=== PATIENT | male | born 1960 | race Caucasian/White ===

== ENCOUNTER 2018-01-07 20:17 | Emergency (ER) | payer OTHER ==
[2018-01-07] MEDS ORDERED: TETRACAINE HCL 0.5% 2ML OPTH ONE (22:29)
[2018-01-07] MEDS ORDERED: FLUORESCEIN SODIUM 0.6 MG/WRAP ONE (22:29)
[2018-01-07] MEDS ORDERED: DIPHENHYDRAMINE 25 MG TAB/CAP ONE (22:46)
--- NOTE | 2018-01-07 23:13 | EDPHYS ---
Physician Documentation [facility] Name: Navid Parr Age: 57 yrs Sex: Male : 1960 Arrival Date: 01/07/2018 Time: 20:21 Bed 5 Private MD: Pk Segovia V ED Physician Phuc Garay HPI: 01/07 23:06 This 57 yrs old Male presents to ER via Ambulatory with complaints of Redness gs of Eye. 23:06 The patient is experiencing redness, tearing. Onset: The symptoms/episode gs began/occurred today. Onset: The symptoms/episode began/occurred after was cutting grass. Duration: the symptoms are continuous. Aggravated by nothing. Alleviated by nothing. Associated signs and symptoms: Pertinent negatives: headache. Severity of symptoms: At their worst the symptoms were moderate in the emergency department the symptoms are unchanged. The patient has not experienced similar symptoms in the past. The patient has not recently seen a physician. Historical: - Allergies: 21:08 No Known Allergies; aj - Home Meds: 22:58 atorvastatin 10 mg oral tab 1 tab once daily [Active]; Avodart 0.5 mg oral cap 1 cap lp1 once daily [Active]; amlodipine 5 mg oral tab once daily [Active]; levothyroxine 112 mcg tab 1 tab once daily [Active]; Ventolin HFA 90 mcg/actuation Nebulizer HFAA 2 puffs every 4 hours [Active]; bupropion HCl 300 mg Oral Tb24 1 tab once daily [Active]; Vitamin D3 2,000 unit oral tab daily [Active]; montelukast 10 mg oral tab 1 tab once daily [Active]; aspirin 325 mg Oral TbEC 1 tab once daily [Active]; multivitamin Oral tab daily [Active]; tamsulosin 0.4 mg Oral cp24 1 cap nightly [Active]; lisinopril 40 mg oral tab once daily [Active]; ranitidine HCl 150 mg Oral cap 1 cap 2 times per day [Active]; Symbicort 160-4.5 mcg/actuation inhalation HFAA 2 puffs 2 times per day [Active]; - PMHx: 21:08 BPH; COPD; GERD; High Cholesterol; Hypertension; Hypothyroidism; aj - PSHx: 21:08 EGD; COLONOSCOPY; Tonsillectomy; Vasectomy; aj - Immunization history:: Adult Immunizations up to date. - Social history:: Smoking status: Patient/guardian denies using tobacco. - Ebola Screening: : No symptoms or risks identified at this time. ROS: 23:06 All other systems are negative. gs Exam: 23:06 Head/Face: Normocephalic, atraumatic. ENT: Nares patent. No nasal discharge, no gs septal abnormalities noted. Tympanic membranes are normal and external auditory canals are clear. Oropharynx with no redness, swelling, or masses, exudates, or evidence of obstruction, uvula midline. Mucous membranes moist. Neck: Trachea midline, no thyromegaly or masses palpated, and no cervical lymphadenopathy. Supple, full range of motion without nuchal rigidity, or vertebral point tenderness. No Meningismus. Cardiovascular: Regular rate and rhythm with a normal S1 and S2. No gallops, murmurs, or rubs. Normal PMI, no JVD. No pulse deficits. Respiratory: Lungs have equal breath sounds bilaterally, clear to auscultation and percussion. No rales, rhonchi or wheezes noted. No increased work of breathing, no retractions or nasal flaring. Abdomen/GI: Soft, non-tender, with normal bowel sounds. No distension or tympany. No guarding or rebound. No evidence of tenderness throughout. 23:06 Constitutional: The patient appears alert, awake. 23:06 Eyes: Pupils: no acute changes, Extraocular movements: no acute changes, Conjunctiva: chemosis, that is moderate, in right eye, injected, in the right eye, no fb or flour-uptake. Vital Signs: 21:08 BP 143 / 94; Pulse 65; Resp 19; Temp 97.7; Pulse Ox 97% on R/A; Weight 92.99 kg; Height aj 6 ft. 0 in. (182.88 cm); Pain 1/10; 22:40 BP 132 / 85; Pulse 52; Resp 18; Pulse Ox 98% on R/A; lp1 21:08 Body Mass Index 27.80 (92.99 kg, 182.88 cm) aj MDM: 22:26 Patient medically screened. gs 23:06 Differential diagnosis: Corneal abrasion of right eye. Foreign body in right eye. gs allergic reaction. Data reviewed: vital signs, nurses notes. Administered Medications: 22:45 Drug: Benadryl 25 mg Route: PO; lp1 23:31 Follow up: Response: No adverse reaction lp1 Disposition: 01/07/18 23:12 Discharged to Home. Impression: Acute atopic conjunctivitis, right eye. - Condition is Stable. - Discharge Instructions: Allergic Conjunctivitis, [id number]. - Medication Reconciliation Form, Thank You Letter, Antibiotic Education, Prescription Opioid Use form. - Follow up: Vitor Wilks MD; When: 2 - 3 days; Reason: Re-evaluation by your physician. Signatures: Sierra Delgado RN RN aj Dionne Delacruz RN RN lp1 Phuc Garay MD MD gs Corrections: (The following items were deleted from the chart) 23:31 23:12 01/07/2018 23:12 Discharged to Home. Impression: Acute atopic conjunctivitis, lp1 right eye. Condition is Stable. Forms are Medication Reconciliation Form, Thank You Letter, Antibiotic Education, Prescription Opioid Use. Follow up: Vitor Wilks; When: 2 - 3 days; Reason: Re-evaluation by your physician. gs
--- NOTE | 2018-01-07 23:13 | ER ---
Nurse's Notes [facility] Name: Navid Parr Age: 57 yrs Sex: Male : 1960 Arrival Date: 01/07/2018 Time: 20:21 Bed 5 Private MD: Pk Segovia V Diagnosis: Acute atopic conjunctivitis, right eye Presentation: 01/07 21:07 Presenting complaint: Patient states: Redness and swelling to right eye that started aj tonight at 1800 after mowing yard. Transition of care: patient was not received from another setting of care. Onset of symptoms was January 07, 2018. Care prior to arrival: None. 21:07 Method Of Arrival: Ambulatory aj 21:07 Acuity: SAUL 2 aj 22:43 Risk Assessment: Do you want to hurt yourself or someone else? Patient reports no lp1 desire to harm self or others. Initial Sepsis Screen: Does the patient meet any 2 criteria? No. Patient's initial sepsis screen is negative. Does the patient have a suspected source of infection? No. Patient's initial sepsis screen is negative. Triage Assessment: 21:08 General: Appears in no apparent distress. comfortable, Behavior is calm, cooperative, aj appropriate for age. EENT: Sclera/Cornea are reddened in outer aspect of conjuctiva of right eye, iris of right eye and inner aspect of conjuctiva of right eye Reports pain in right eye. Respiratory: Airway is patent Respiratory effort is even, unlabored, Respiratory pattern is regular, symmetrical. Derm: Skin is intact, is healthy with good turgor, Skin is pink, warm \T\ dry. normal. Historical: - Allergies: 21:08 No Known Allergies; aj - Home Meds: 22:58 atorvastatin 10 mg oral tab 1 tab once daily [Active]; Avodart 0.5 mg oral cap 1 cap lp1 once daily [Active]; amlodipine 5 mg oral tab once daily [Active]; levothyroxine 112 mcg tab 1 tab once daily [Active]; Ventolin HFA 90 mcg/actuation Nebulizer HFAA 2 puffs every 4 hours [Active]; bupropion HCl 300 mg Oral Tb24 1 tab once daily [Active]; Vitamin D3 2,000 unit oral tab daily [Active]; montelukast 10 mg oral tab 1 tab once daily [Active]; aspirin 325 mg Oral TbEC 1 tab once daily [Active]; multivitamin Oral tab daily [Active]; tamsulosin 0.4 mg Oral cp24 1 cap nightly [Active]; lisinopril 40 mg oral tab once daily [Active]; ranitidine HCl 150 mg Oral cap 1 cap 2 times per day [Active]; Symbicort 160-4.5 mcg/actuation inhalation HFAA 2 puffs 2 times per day [Active]; - PMHx: 21:08 BPH; COPD; GERD; High Cholesterol; Hypertension; Hypothyroidism; aj - PSHx: 21:08 EGD; COLONOSCOPY; Tonsillectomy; Vasectomy; aj - Immunization history:: Adult Immunizations up to date. - Social history:: Smoking status: Patient/guardian denies using tobacco. - Ebola Screening: : No symptoms or risks identified at this time. Screenin:43 Abuse screen: Denies threats or abuse. Denies injuries from another. Nutritional lp1 screening: No deficits noted. Tuberculosis screening: No symptoms or risk factors identified. Fall Risk None identified. Assessment: 22:40 General: Appears in no apparent distress. Behavior is calm, cooperative, appropriate lp1 for age. Pain: Complains of pain in right lower eyelid. Neuro: Level of Consciousness is awake, alert, obeys commands. Cardiovascular: Patient's skin is warm and dry. Respiratory: Respiratory effort is even, unlabored. GI: No signs and/or symptoms were reported involving the gastrointestinal system. : No signs and/or symptoms were reported regarding the genitourinary system. EENT: Sclera/Cornea are reddened in right eye. Derm: Skin is pink, warm \T\ dry. Musculoskeletal: Circulation, motion, and sensation intact. Vital Signs: 21:08 BP 143 / 94; Pulse 65; Resp 19; Temp 97.7; Pulse Ox 97% on R/A; Weight 92.99 kg; Height aj 6 ft. 0 in. (182.88 cm); Pain 1/10; 22:40 BP 132 / 85; Pulse 52; Resp 18; Pulse Ox 98% on R/A; lp1 21:08 Body Mass Index 27.80 (92.99 kg, 182.88 cm) ED Course: 20:21 Patient arrived in ED. es 20:21 Pk Segovia MD is Private Physician. es 21:07 Triage completed. aj 21:08 Arm band placed on right wrist. Patient placed in waiting room. aj 22:19 Phuc Garay MD is Attending Physician. gs 22:40 Dionne Delacruz RN is Primary Nurse. lp1 22:44 Patient has correct armband on for positive identification. lp1 23:11 Vitor Wilks MD is Referral Physician. gs 23:29 No provider procedures requiring assistance completed. Patient did not have IV access lp1 during this emergency room visit. Administered Medications: 22:45 Drug: Benadryl 25 mg Route: PO; lp1 23:31 Follow up: Response: No adverse reaction lp1 Outcome: 23:12 Discharge ordered by . 23:31 Discharged to home ambulatory, with significant other. lp1 23:31 Condition: good 23:31 Discharge instructions given to patient, Instructed on discharge instructions, follow up and referral plans. Demonstrated understanding of instructions, follow-up care. 23:31 Patient left the ED. lp1 Signatures: Sierra Delgado, RN RN Nikki Apodaca Dionne Delacruz, RN RN lp1 Phuc Garay MD MD
[2018-01-07 23:37] VITALS: TEMP 97.7
[2018-01-07 23:39] VITALS: BP 132/85; O2SAT 98
== END 2018-01-07 23:31 | disposition home or self-care (01) ==
LOC: ER 20:17
DX: H10.11 Acute atopic conjunctivitis, right eye (principal); J44.9 Chronic obstructive pulmonary disease, unspecified; K21.9 Gastro-esophageal reflux disease without esophagitis; E78.00 Pure hypercholesterolemia, unspecified; I10 Essential (primary) hypertension; E03.9 Hypothyroidism, unspecified
CPT/HCPCS: 99283

== ENCOUNTER 2021-06-10 08:06 | Emergency (ER) | payer OTHER ==
[2021-06-10 08:54] LABS: Absolute Lymphocytes (CBC) 2.6 K/uL (0.7-4.9); Basophils % 0.8 % (0-1.3); Hematocrit 43.6 % (39.6-49.0); Lymphocytes % 29.7 % (15.3-44.8); MPV 9.1 fL (7.6-11.3); RBC Red Blood Cell Count 4.84 M/uL (4.33-5.43)
--- NOTE | 2021-06-10 09:03 | RAD REPORT ---
EXAM DESCRIPTION: CT - Stone Protocol - 06/10/2021 8:47 am CLINICAL HISTORY: Flank pain. Hematuria;Flank pain COMPARISON: Abdomen Pelvis W Contrast dated 02/13/2016 TECHNIQUE: Axial images were obtained without oral or IV contrast. Lack of contrast limits solid org an and vascular assessment. The [id number] spans the entirety of the system partially obscuring uppermost abdomen and lung bases. Coronal reformatted images were obtained and reviewed. All CT scans are performed using dose optimization technique as appropriate and may include automated exposure control or mA/KV adjustment according to patient size. FINDINGS: The lower lung jalloh are clear. Imaged portions of the liver and spleen show no suspicious findings on non-contrast imaging. The panc reas and adrenal glands are normal. No pathologic lymphadenopathy in the abdomen or pelvis. 4-5 mm calculus is present mid right ureter without significant hydronephrosis. Additional bilateral caliceal stones are present in both kidneys. Multiple benign appearing cysts are present bilaterally, largest rigidity from the lateral right kidney measuring 16 centimeters. No bowel obstruction, free air, free fluid or abscess. Normal appendix noted.Prostate gland is mildly prominent and projects into the bladder base. No significant bony abnormality. IMPRESSION: 4-5 mm stone mid right ureter without significant hydronephrosis. Additional bilateral caliceal stones are present in both kidneys.
[2021-06-10] MEDS ORDERED: NA CHLORIDE 0.9% 500 ML ONE (09:05)
[2021-06-10 10:56] LABS: Albumin 3.8 g/dL (3.4-5.0); Potassium 4.3 mmol/L (3.5-5.1)
[2021-06-10 11:00] LABS: Bilirubin Direct 0.1 mg/dL (0-0.2); Bilirubin Total 0.4 mg/dL (0.2-1.0); Protein, Total 7.7 g/dL (6.4-8.2)
--- NOTE | 2021-06-10 11:04 | EDPHYS ---
Physician Documentation [facility] Name: Navid Parr Age: 61 yrs Sex: Male : 1960 Arrival Date: 06/10/2021 Time: 08:11 Bed 20 Private MD: Pk Segovia V ED Physician Chandra Aguilar HPI: 06/10 08:33 This 61 yrs old Male presents to ER via Ambulatory with complaints of Urinary jr8 Problem - blood. 08:33 The patient complains of pain in the right flank. The pain radiates to the abdomen. jr8 Onset: The symptoms/episode began/occurred gradually, 1 week(s) ago, and became worse and became persistent. Modifying factors: The symptoms are alleviated by nothing. the symptoms are aggravated by nothing. Associated signs and symptoms: Pertinent positives: hematuria. Severity of pain: At its worst the pain was mild in the emergency department the pain is unchanged. The patient has experienced a previous episode. The patient has not recently seen a physician. This is a 61-year-old male patient that presented to the emergency room with complaints of 1 week history of right flank and low back pain that now has progressed to the right side of his abdomen. Stated that this morning he started with hematuria. Pain is a 1 out of 10 currently. Patient stated that he has had a history of renal stones in the past as well with similar symptoms.. Historical: - PMHx: 08:15 BPH; COPD; GERD; High Cholesterol; Hypertension; Hypothyroidism; aa5 - Immunization history:: Client reports receiving the 2nd dose of the Covid vaccine. - Social history:: Smoking status: Patient denies any tobacco usage or history of. ROS: 08:33 Eyes: Negative for injury, pain, redness, and discharge, ENT: Negative for injury, jr8 pain, and discharge, Neck: Negative for injury, pain, and swelling, Cardiovascular: Negative for chest pain, palpitations, and edema, Respiratory: Negative for shortness of breath, cough, wheezing, and pleuritic chest pain, MS/Extremity: Negative for injury and deformity, Skin: Negative for injury, rash, and discoloration, Neuro: Negative for headache, weakness, numbness, tingling, and seizure. 08:33 Abdomen/GI: Positive for abdominal pain, Negative for nausea, vomiting, and diarrhea. 08:33 Back: Positive for flank pain, on the right. 08:33 : Positive for hematuria. Exam: 08:33 Constitutional: This is a well developed, well nourished patient who is awake, alert, jr8 and in no acute distress. Cardiovascular: Regular rate and rhythm with a normal S1 and S2. No gallops, murmurs, or rubs. Normal PMI, no JVD. No pulse deficits. Respiratory: Lungs have equal breath sounds bilaterally, clear to auscultation and percussion. No rales, rhonchi or wheezes noted. No increased work of breathing, no retractions or nasal flaring. Skin: Warm, dry with normal turgor. Normal color with no rashes, no lesions, and no evidence of cellulitis. MS/ Extremity: Pulses equal, no cyanosis. Neurovascular intact. Full, normal range of motion. Neuro: Awake and alert, GCS 15, oriented to person, place, time, and situation. Cranial nerves II-XII grossly intact. Motor strength 5/5 in all extremities. Sensory grossly intact. 08:33 Abdomen/GI: Inspection: abdomen appears normal, Bowel sounds: active, all quadrants, Palpation: soft, in all quadrants, mild abdominal tenderness, in the anterior aspect of right lateral abdomen, mass, is not appreciated, rebound tenderness, is not appreciated, voluntary guarding, is not appreciated, involuntary guarding, is not appreciated, no appreciated organomegaly, Indicators: McBurney's point is not tender, Neville's sign is negative, Rovsing's sign is negative, Liver: tenderness, is not appreciated. 08:33 Back: ROM is normal, normal spinal alignment noted, CVA tenderness, that is mild, is noted bilaterally, vertebral tenderness, is not appreciated. Vital Signs: 08:14 BP 119 / 86; Pulse 72; Resp 20 S; Temp 97.3(TE); Pulse Ox 99% on R/A; Weight 97.07 kg aa5 (R); Height 6 ft. 0 in. (182.88 cm) (R); 08:33 BP 127 / 85; Pulse 65; Resp 18; Temp 97.8; Pulse Ox 97% on R/A; sl2 09:30 BP 127 / 87; Pulse 62; Resp 18; Temp 97.8; Pulse Ox 97% on R/A; sl2 10:00 BP 124 / 90; Pulse 57; Resp 18; Temp 97.8; Pulse Ox 99% on R/A; sl2 11:00 BP 127 / 84; Pulse 58; Resp 18; Temp 97.9; Pulse Ox 98% on R/A; sl2 08:14 Body Mass Index 29.02 (97.07 kg, 182.88 cm) aa5 MDM: 08:18 Patient medically screened. [facility] 11:02 Data reviewed: vital signs, nurses notes, lab test result(s), radiologic studies, CT jr8 scan. Data interpreted: Pulse oximetry: on room air is 97 %. Interpretation: normal. Counseling: I had a detailed discussion with the patient and/or guardian regarding: the historical points, exam findings, and any diagnostic results supporting the discharge/admit diagnosis, lab results, radiology results, the need for outpatient follow up, a urologist, to return to the emergency department if symptoms worsen or persist or if there are any questions or concerns that arise at home. ED course: Patient with only minimal pain on a scale of 1-10 currently rating it a pain of 1. Patient was able to urinate. Dynamically stable and afebrile. Patient has a history of stage IV chronic renal insufficiency which is not different from what we are seeing on labs today. Patient has mild hydronephrosis with a 4 to 5 mm stone right mid ureter. Should be able to pass this on his own and will put him on medications to help. Explained to patient that if he were to run fever have uncontrolled pain or nausea vomiting or were to stop urinating to immediately come back for further evaluation. Otherwise he needs to follow-up with urology in the next several days. Patient good with the plan at this time.. 06/10 08:18 Order name: Basic Metabolic Panel; Complete Time: 11:02 06/10 08:18 Order name: CBC with Diff; Complete Time: 09:03 06/10 08:18 Order name: Hepatic Function; Complete Time: 11:02 06/10 08:18 Order name: Urine Microscopic Only 06/10 10:56 Order name: Urinalysis ch5 06/10 08:18 Order name: IV Saline Lock; Complete Time: 08:46 06/10 08:18 Order name: Labs collected and sent; Complete Time: 08:46 /25 08:33 Order name: CT Stone Protocol; Complete Time: 09:04 jr8 Administered Medications: 08:36 Drug: NS 0.9% 500 ml Route: IV; Rate: bolus; Site: right forearm; sl2 09:50 Follow up: Response: No adverse reaction; IV Status: Completed infusion; IV Intake: sl2 500ml Disposition: 06/11 08:49 Co-signature as Attending Physician, Chandra Aguilar MD I agree with the assessment and sp3 plan of care. Disposition Summary: 06/10/21 11:04 Discharge Ordered Location: Home jr8 Problem: new jr8 Symptoms: have improved jr8 Condition: Stable jr8 Diagnosis - Hydronephrosis with renal and ureteral calculous obstruction jr8 Followup: jr8 - With: Dennis Munoz MD - When: 2 - 3 days - Reason: Recheck today's complaints, Continuance of care, Re-evaluation by your physician Discharge Instructions: - Discharge Summary Sheet jr8 - Kidney Stones jr8 - Hydronephrosis jr8 Forms: - Medication Reconciliation Form jr8 - Thank You Letter jr8 - Antibiotic Education jr8 - Prescription Opioid Use jr8 Prescriptions: - tamsulosin 0.4 mg Oral capsule - take 1 capsule by ORAL route Every night . 1/2 hour following the same meal jr8 each day; 10 capsule; Refills: 0, Product Selection Permitted - Cipro 500 mg Oral Tablet - take 1 tablet by ORAL route once daily for 5 days; 5 tablet; Refills: 0, jr8 Product Selection Permitted - Zofran 4 mg Oral Tablet - take 1 tablet by ORAL route every 12 hours As needed; 20 tablet; Refills: 0, jr8 Product Selection Permitted Signatures: Dispatcher [employer] Elyse Helms RN RN aa5 Duane Young PA PA jr8 Chandra Aguilar MD MD sp3 Lor Yap RN RN sl2 Corrections: (The following items were deleted from the chart) 06/10 11:03 08:18 Urine Dipstick-Ancillary ordered. jr8 sl2
--- NOTE | 2021-06-10 11:04 | ER ---
Nurse's Notes [facility] Name: Navid Parr Age: 61 yrs Sex: Male : 1960 Arrival Date: 06/10/2021 Time: 08:11 Bed 20 Private MD: Pk Segovia V Diagnosis: Hydronephrosis with renal and ureteral calculous obstruction Presentation: 06/10 08:14 Chief complaint: Patient states: low back pain radiating to RLQ that began 1 week ago, aa5 pt reports hematuria this morning. Reports hx of kidney stones. Coronavirus screen: At this time, the client does not indicate any symptoms associated with coronavirus-19. Ebola Screen: No symptoms or risks identified at this time. Initial Sepsis Screen: Does the patient meet any 2 criteria? No. Patient's initial sepsis screen is negative. Does the patient have a suspected source of infection? No. Patient's initial sepsis screen is negative. Risk Assessment: Do you want to hurt yourself or someone else? Patient reports no desire to harm self or others. Onset of symptoms was May 2021. 08:14 Method Of Arrival: Ambulatory aa5 08:14 Acuity: SAUL 3 aa5 Historical: - PMHx: 08:15 BPH; COPD; GERD; High Cholesterol; Hypertension; Hypothyroidism; aa5 - Immunization history:: Client reports receiving the 2nd dose of the Covid vaccine. - Social history:: Smoking status: Patient denies any tobacco usage or history of. Screenin:25 Abuse screen: Denies threats or abuse. Nutritional screening: No deficits noted. sl2 Tuberculosis screening: No symptoms or risk factors identified. Fall Risk None identified. Assessment: 08:25 General: Appears in no apparent distress. well groomed, well developed, Behavior is sl2 calm, cooperative. 08:25 Pain: Complains of pain in anterior aspect of right lateral abdomen and abdomen and sl2 right flank Pain radiates to abdomen Pain currently is 1 out of 10 on a pain scale. Quality of pain is described as aching, Pain began 3 hours ago. Is continuous, Alleviated by nothing. Aggravated by increased activity. Neuro: No deficits noted. Cardiovascular: No deficits noted. Respiratory: No deficits noted. GI: Bowel sounds present X 4 quads. Abd is soft and non tender X 4 quads. Reports lower abdominal pain. : No deficits noted. EENT: No deficits noted. Derm: No deficits noted. Musculoskeletal: No deficits noted. 08:37 Reassessment: Patient transported to radiology dept for CAt Scan via wheelchair. sl2 08:55 Reassessment: CAT scan completed, patient has been returned to the unit. sl2 09:57 Reassessment: Patient AAO X 3, lying quietly in bed - shows no signs of distress or sl2 discomfort, verbalized mild pain 1 of 10, denies needing pain medication at this time. Vital signs stable. Family / daughter present at bedside. Will continue to monitor and re-assess, awaiting diagnostic results and disposition. Vital Signs: 08:14 BP 119 / 86; Pulse 72; Resp 20 S; Temp 97.3(TE); Pulse Ox 99% on R/A; Weight 97.07 kg aa5 (R); Height 6 ft. 0 in. (182.88 cm) (R); 08:33 BP 127 / 85; Pulse 65; Resp 18; Temp 97.8; Pulse Ox 97% on R/A; sl2 09:30 BP 127 / 87; Pulse 62; Resp 18; Temp 97.8; Pulse Ox 97% on R/A; sl2 10:00 BP 124 / 90; Pulse 57; Resp 18; Temp 97.8; Pulse Ox 99% on R/A; sl2 11:00 BP 127 / 84; Pulse 58; Resp 18; Temp 97.9; Pulse Ox 98% on R/A; sl2 08:14 Body Mass Index 29.02 (97.07 kg, 182.88 cm) aa5 ED Course: 08:11 Patient arrived in ED. am2 08:12 Pk Segovia MD is Private Physician. am2 08:14 Triage completed. aa5 08:14 Arm band placed on. aa5 08:17 [facility] jr8 08:18 Chandra Aguilar MD is Attending Physician. jr8 08:25 Patient has correct armband on for positive identification. Bed in low position. Door sl2 closed. Noise minimized. Visitors limited. Warm blanket given. 08:30 Inserted saline lock: 20 gauge in right forearm, using aseptic technique. sl2 08:42 Lor Yap RN is Primary Nurse. sl2 08:42 CT ordered. sl2 08:47 CT Stone Protocol In Process Unspecified. EDMS 11:04 Dennis Munoz MD is Referral Physician. jr8 11:06 Urinalysis Sent. sl2 Administered Medications: 08:36 Drug: NS 0.9% 500 ml Route: IV; Rate: bolus; Site: right forearm; sl2 09:50 Follow up: Response: No adverse reaction; IV Status: Completed infusion; IV Intake: sl2 500ml Intake: 09:50 IV: 500ml; Total: 500ml. 2 Outcome: 11:04 Discharge ordered by . jr8 11:18 Discharged to home ambulatory, with family. 5 11:18 Condition: stable 11:18 Discharge instructions given to patient, family, Instructed on discharge instructions, Prescriptions given X 3. 11:18 Patient left the ED. 5 Signatures: Dispatcher [employer] EDND Elyse Alegre, RN RN aa5 Duane Young PA PA jr8 Sierra Cantor am2 Stewart Parikh RN RN 5 Lor Yap RN RN 2
[2021-06-10 11:44] VITALS: BP 127/84; TEMP 97.9; O2SAT 98
[2021-06-10 12:01] LABS: Urine Bacteria <20 /HPF (NONE SEEN); Urine RBC LOADED /HPF (NONE SEEN)
== END 2021-06-10 11:18 | disposition home or self-care (01) ==
LOC: ER 08:06
DX: N13.2 Hydronephrosis with renal and ureteral calculous obstruction (principal); Z87.442 Personal history of urinary calculi; I10 Essential (primary) hypertension
CPT/HCPCS: 87088; 85025; 87086; 80048; 36415; 80076; 81015; 76377; 74176; 96360; 99284; J7040

== ENCOUNTER 2021-11-09 11:15 | Emergency (ER) | payer OTHER ==
[2021-11-09] MEDS ORDERED: ACETAMINOPHEN 500 MG TAB ONE (12:02)
[2021-11-09] MEDS ORDERED: CEFTRIAXONE 1000 MG/VIAL ONE (12:02)
[2021-11-09] MEDS ORDERED: METHYLPREDNISOLONE 125 MG INJ ONE (12:02)
[2021-11-09] MEDS ORDERED: AZITHROMYCIN 250 MG TAB ONE (12:02)
[2021-11-09] MEDS ORDERED: LEVALBUTEROL 1.25 MG/3 ML NEB ONE (12:03)
[2021-11-09] MEDS ORDERED: IPRATROPIUM BROM 0.5MG/2.5ML ONE (12:03)
[2021-11-09] MEDS ORDERED: NA CHLORIDE 0.9% 500 ML ONE (12:03)
[2021-11-09 12:36] LABS: Absolute Lymphocytes (CBC) 1.2 K/uL (0.7-4.9); Hematocrit 43.8 % (39.6-49.0); Lymphocytes % 14.7 % (15.3-44.8); MPV 9.9 fL (7.6-11.3); RBC Red Blood Cell Count 4.82 M/uL (4.33-5.43)
--- NOTE | 2021-11-09 12:45 | RAD REPORT ---
EXAM DESCRIPTION: RAD - Chest Single View - 11/09/2021 12:14 pm CLINICAL HISTORY: COUGH COMPARISON: Abdomen 1 View (KUB) dated 06/21/2021; Chest Single View dated 02/12/2016; CHEST PA AND LA T 2 VIEW dated 10/24/2014; CHEST PA AND LAT 2 VIEW dated 01/03/2014 FINDINGS: Lines: None. Lungs: No evidence of edema or pneumonia. Linear scarring in the left lung base laterally. Pleural: No significant pleural effusions or pneumothorax. Cardiac: The heart size is within normal limits. Bones: No acute fractures. Other: IMPRESSION: No acute cardiopulmonary disease.
[2021-11-09 12:57] LABS: Albumin 3.6 g/dL (3.4-5.0); Bilirubin Direct 0.1 mg/dL (0-0.2); Bilirubin Total 0.5 mg/dL (0.2-1.0); Potassium 3.6 mmol/L (3.5-5.1); Protein, Total 7.2 g/dL (6.4-8.2); Troponin High Sensitivity 10.3 pg/mL (<58.9)
--- NOTE | 2021-11-09 13:44 | EDPHYS ---
Physician Documentation [facility] Name: Navid Parr Age: 61 yrs Sex: Male : 1960 Arrival Date: 11/09/2021 Time: 11:19 Bed 8 Private MD: SHASHI Physician Rios Mcgregor HPI: 11/09 13:35 This 61 yrs old Male presents to ER via Ambulatory with complaints of Flu nadege Symptoms. 13:35 The patient has shortness of breath at rest, with light activity. Onset: The nadege symptoms/episode began/occurred 2 day(s) ago. Duration: The symptoms are continuous, and are steadily getting worse. The patient's shortness of breath is aggravated by coughing, light activity. The patient presents to the emergency department with wheezing, Current therapy: albuterol inhaler, that began without any particular precipitating event, the patient was reported to have chest congestion, productive cough, trouble breathing. Modifying factors: The symptoms are alleviated by cool environment. The patient or guardian reports airway noise, cough, that is intermittent, difficulty breathing, flu symptoms, low-grade fever. Modifying factors: The symptoms are alleviated by remaining still, the symptoms are aggravated by cold environment. Historical: - Allergies: 11:25 No Known Allergies; ab2 - PMHx: 11:25 BPH; COPD; GERD; High Cholesterol; Hypertension; Hypothyroidism; ab2 - PSHx: 11:25 Vasectomy; Tonsillectomy; ab2 - Immunization history:: Adult Immunizations up to date, Client reports receiving the 2nd dose of the Covid vaccine. - Social history:: Smoking status: Patient denies any tobacco usage or history of. - Family history:: not pertinent. ROS: 13:35 Constitutional: Negative for fever, chills, and weight loss, Eyes: Negative for injury, nadege pain, redness, and discharge, ENT: Negative for injury, pain, and discharge, Neck: Negative for injury, pain, and swelling, Cardiovascular: Negative for chest pain, palpitations, and edema, Respiratory: Negative for shortness of breath, cough, wheezing, and pleuritic chest pain, Abdomen/GI: Negative for abdominal pain, nausea, vomiting, diarrhea, and constipation, Back: Negative for injury and pain, : Negative for injury, bleeding, discharge, and swelling, MS/Extremity: Negative for injury and deformity, Skin: Negative for injury, rash, and discoloration, Neuro: Negative for headache, weakness, numbness, tingling, and seizure, Psych: Negative for depression, anxiety, suicide ideation, homicidal ideation, and hallucinations, Endocrine: Negative for neck swelling, polydipsia, polyuria, polyphagia, and marked weight changes, Hematologic/Lymphatic: Negative for swollen nodes, abnormal bleeding, and unusual bruising. 13:35 Respiratory: Positive for cough, "sounds productive", dyspnea on exertion, shortness of breath, at rest. wheezing, inspiratory, expiratory. Exam: 13:39 Constitutional: This is a well developed, well nourished patient who is awake, alert, nadege and in no acute distress. Head/Face: Normocephalic, atraumatic. Eyes: Pupils equal round and reactive to light, extra-ocular motions intact. Lids and lashes normal. Conjunctiva and sclera are non-icteric and not injected. Cornea within normal limits. Periorbital areas with no swelling, redness, or edema. ENT: Nares patent. No nasal discharge, no septal abnormalities noted. Tympanic membranes are normal and external auditory canals are clear. Oropharynx with no redness, swelling, or masses, exudates, or evidence of obstruction, uvula midline. Mucous membranes moist. Neck: Trachea midline, no thyromegaly or masses palpated, and no cervical lymphadenopathy. Supple, full range of motion without nuchal rigidity, or vertebral point tenderness. No Meningismus. Chest/axilla: Normal chest wall appearance and motion. Nontender with no deformity. No lesions are appreciated. Cardiovascular: Regular rate and rhythm with a normal S1 and S2. No gallops, murmurs, or rubs. Normal PMI, no JVD. No pulse deficits. Abdomen/GI: Soft, non-tender, with normal bowel sounds. No distension or tympany. No guarding or rebound. No evidence of tenderness throughout. Back: No spinal tenderness. No costovertebral tenderness. Full range of motion. Male : Normal genitalia with no discharge or lesions. Skin: Warm, dry with normal turgor. Normal color with no rashes, no lesions, and no evidence of cellulitis. MS/ Extremity: Pulses equal, no cyanosis. Neurovascular intact. Full, normal range of motion. Neuro: Awake and alert, GCS 15, oriented to person, place, time, and situation. Cranial nerves II-XII grossly intact. Motor strength 5/5 in all extremities. Sensory grossly intact. Cerebellar exam normal. Normal gait. Psych: Awake, alert, with orientation to person, place and time. Behavior, mood, and affect are within normal limits. 13:39 ECG was reviewed by the Attending Physician. 13:39 Respiratory: the patient does not display signs of respiratory distress, Respirations: labored breathing, that is mild, Breath sounds: bronchial sounds, that are mild, decreased breath sounds, that are mild, rhonchi, that are moderate, stridor, that is mild, + upper airway congestion. wheezing: expiratory is scattered. Vital Signs: 11:26 BP 113 / 71; Pulse 124; Resp 20; Temp 99.7(O); Pulse Ox 93% on R/A; Weight 94.35 kg; ab2 Height 6 ft. (182.88 cm); Pain 1/10; 12:30 BP 112 / 64; Pulse 91; Resp 20; Pulse Ox 92% on R/A; ph 13:40 BP 103 / 60; Pulse 87; Resp 18; Pulse Ox 97% on R/A; ph 14:21 BP 114 / 62; Pulse 79; Resp 20; Temp 98.0; Pulse Ox 97% on R/A; ph 11:26 Body Mass Index 28.21 (94.35 kg, 182.88 cm) ab2 MDM: 11:33 Patient medically screened. nadege 13:41 Differential diagnosis: asthma, Bronchitis CHF exacerbation, Chronic Obstructive nadege Pulmonary Disease bronchitis, URI, reactive airway, URI, Myocardial Infarction pneumonia, Pneumothorax pulmonary edema, reactive airway disease, Sepsis Unstable Angina. Antibiotic administration: The patient is discharged and will get outpatient antibiotics, Zithromax. The patient's Wells Deep Vein Thrombosis Score was calculated as follows: Total Score: 0-2 Pts- Low Risk. The patient's pulmonary embolism risk score was calculated as follows: Total Score: 0-2 points. This patient was found to be at low risk for a pulmonary embolism by using the Well's assessment criteria. Immunization status: Influenza vaccine: Data reviewed: vital signs, nurses notes, lab test result(s), EKG, radiologic studies, CT scan, plain films. Data interpreted: rotor coil taper: rate is 87 beats/min, rhythm is regular, Pulse oximetry: on room air is 97 %. Test interpretation: by ED physician or midlevel provider: plain radiologic studies. Counseling: I had a detailed discussion with the patient and/or guardian regarding: the historical points, exam findings, and any diagnostic results supporting the discharge/admit diagnosis, lab results, radiology results, the need for outpatient follow up, the need for further work-up and treatment in the hospital. 11/09 11:39 Order name: Basic Metabolic Panel; Complete Time: 13: [facility] 11/09 11:39 Order name: CBC with Diff; Complete Time: 13: [facility] 11/09 11:39 Order name: LFT's; Complete Time: 13: [facility] 11/09 11:39 Order name: Magnesium; Complete Time: 13: [facility] 11/09 11:39 Order name: NT PRO-BNP; Complete Time: 13: [facility] 11/09 11:39 Order name: Troponin HS; Complete Time: 13: [facility] 11/09 11:39 Order name: XRAY Chest (1 view); Complete Time: 13: [facility] 11/09 11:39 Order name: COVID-19/FLU A+B (Document "Date of Onset" if Symptomatic) [facility] 11/09 11:39 Order name: Blood Culture Adult (2) nadege 11/09 11:39 Order name: Lactate; Complete Time: 13:05 [facility] 11/09 11:39 Order name: EKG; Complete Time: 11:40 11/09 11:39 Order name: Cardiac monitoring; Complete Time: 12:33 11/09 11:39 Order name: EKG - Nurse/Tech; Complete Time: 12:38 11/09 11:39 Order name: IV Saline Lock; Complete Time: 12:33 11/09 11:39 Order name: Labs collected and sent; Complete Time: 12:33 [facility] 11/09 11:39 Order name: O2 Per Protocol; Complete Time: 12:33 [facility] 11/09 11:39 Order name: O2 Sat Monitoring; Complete Time: 12:33 [facility] EC:39 Rate is 86 beats/min. Rhythm is regular. QRS [place] is Normal. [place] interval is normal. QRS nadege interval is normal. QT interval is normal. No Q waves. T waves are Normal. No ST changes noted. Clinical impression: NSR w/ Non-specific ST/T Changes and No evidence of ischemia. Interpreted by me. Reviewed by me. Administered Medications: 12:38 Drug: Rocephin (cefTRIAXone) 1 grams Route: IV; Rate: per protocol; Site: right forearm;ph 13:15 Follow up: Response: No adverse reaction; IV Status: Completed infusion ph 12:38 Drug: Zithromax (azithromycin) 500 mg Route: PO; ph 14:23 Follow up: Response: No adverse reaction ph 12:38 Drug: SOLU-Medrol (methylPrednisoLONE) 125 mg Route: IVP; Site: right forearm; ph 14:23 Follow up: Response: No adverse reaction ph 12:38 Drug: Xopenex (levalbuterol) 1.25 mg Route: Inhalation; ph 14:23 Follow up: Response: No adverse reaction ph 12:38 Drug: AtroVENT (ipratropium) Aerosol 0.5 mg Route: Inhalation; ph 14:22 Follow up: Response: No adverse reaction ph 12:39 Drug: NS 0.9% 500 ml Route: IV; Rate: bolus; Site: right forearm; ph 13:30 Follow up: Response: No adverse reaction; IV Status: Completed infusion; IV Intake: ph 500ml 12:39 Drug: Tylenol 1000 mg Route: PO; ph 14:23 Follow up: Response: No adverse reaction; Temperature is decreased ph 14:13 Drug: predniSONE 40 mg Route: PO; jh6 14:22 Follow up: Response: No adverse reaction ph Disposition Summary: 11/09/21 13:44 Discharge Ordered Location: Home nadege Problem: new nadege Symptoms: have improved nadege Condition: Stable nadege Diagnosis - Bronchitis, not specified as acute or chronic nadege - Influenza due to identified novel influenza A virus nadege - Fever, unspecified nadege Followup: nadege - With: Private Physician - When: 2 - 3 days - Reason: Recheck today's complaints, Continuance of care, Re-evaluation by your physician Discharge Instructions: - Discharge Summary Sheet nadege - Acute Bronchitis, Adult nadege - Fever, Adult nadege - Influenza, Adult nadege - Upper Respiratory Infection, Adult nadege - Acute Bronchitis, Adult, [id number]-[id number] nadege - Upper Respiratory Infection, Adult, Vquq-va-Coga nadege - Influenza, Adult, [id number] nadege Forms: - Medication Reconciliation Form nadege - Thank You Letter nadege - Antibiotic Education nadege - Prescription Opioid Use nadege Prescriptions: - Xofluza 40 mg Oral tablet - take 2 tablet by ORAL route one time; 2 tablet; Refills: 0, Product Selection [facility] Permitted - Zithromax 500 mg Oral Tablet - take 1 tablet by ORAL route once daily for 5 days; 5 tablet; Refills: 0, [facility] Product Selection Permitted Signatures: Dispatcher [employer] Rios Merritt MD MD cha Hall, Patricia, RN RN ph Alia Noyola RN RN jh6 Demar Treviño
--- NOTE | 2021-11-09 13:44 | ER ---
Nurse's Notes [facility] Name: Navid Parr Age: 61 yrs Sex: Male : 1960 Arrival Date: 11/09/2021 Time: 11:19 Bed 8 Private MD: Diagnosis: Bronchitis, not specified as acute or chronic;Influenza due to identified novel influenza A virus;Fever, unspecified Presentation: 11/09 11:26 Chief complaint: Patient states: "I have a fever, I'm weak, congested and SOB." jay states he hasn't been eating and all of their grandkids got diagnosed with Flu A and they baby sit them. Coronavirus screen: Vaccine status: Patient reports receiving the 2nd dose of the covid vaccine. Ebola Screen: Patient negative for fever greater than or equal to 101.5 degrees Fahrenheit, and additional compatible Ebola Virus Disease symptoms Patient denies exposure to infectious person. Patient denies travel to an Ebola-affected area in the 21 days before illness onset. No symptoms or risks identified at this time. Initial Sepsis Screen: Does the patient meet any 2 criteria? HR > 90 bpm. Does the patient have a suspected source of infection? No. Patient's initial sepsis screen is negative. Risk Assessment: Do you want to hurt yourself or someone else? Patient reports no desire to harm self or others. Onset of symptoms is unknown. 11:26 Method Of Arrival: Ambulatory ab2 11:26 Acuity: SAUL 3 ab2 Triage Assessment: 11:28 General: Appears in no apparent distress. uncomfortable, Behavior is calm, cooperative, ab2 appropriate for age. Pain: Complains of pain in head Pain currently is 1 out of 10 on a pain scale. Cardiovascular: Denies chest pain. Respiratory: Reports shortness of breath Airway is patent Respiratory effort is even, unlabored, Respiratory pattern is regular, symmetrical. Derm: Skin temperature is warm. Musculoskeletal: Reports weakness in whole body. Historical: - Allergies: 11:25 No Known Allergies; ab2 - PMHx: 11:25 BPH; COPD; GERD; High Cholesterol; Hypertension; Hypothyroidism; ab2 - PSHx: 11:25 Vasectomy; Tonsillectomy; ab2 - Immunization history:: Adult Immunizations up to date, Client reports receiving the 2nd dose of the Covid vaccine. - Social history:: Smoking status: Patient denies any tobacco usage or history of. - Family history:: not pertinent. Screenin:39 Abuse screen: Denies threats or abuse. Denies injuries from another. Nutritional ph screening: No deficits noted. Tuberculosis screening: No symptoms or risk factors identified. Fall Risk None identified. Assessment: 12:30 General: Appears in no apparent distress. comfortable, Behavior is calm, cooperative, ph appropriate for age, Reports fever for 12-24 hours. Pain: Denies pain. Neuro: Level of Consciousness is awake, alert, obeys commands, Oriented to person, place, time, situation. Cardiovascular: Denies chest pain, Capillary refill < 3 seconds in bilateral fingers Patient's skin is warm and dry. Respiratory: Reports shortness of breath at rest Airway is patent Respiratory effort is even, unlabored, Respiratory pattern is regular, symmetrical. GI: No signs and/or symptoms were reported involving the gastrointestinal system. Patient currently denies diarrhea, nausea, vomiting. Derm: Skin is intact, is healthy with good turgor, Skin is pink, warm \\T\\ dry. 13:30 Reassessment: Patient appears in no apparent distress at this time. Patient and/or ph family updated on plan of care and expected duration. Pain level reassessed. Patient is alert, oriented x 3, equal unlabored respirations, skin warm/dry/pink. awaiting test results, at bedside, VSS. Vital Signs: 11:26 BP 113 / 71; Pulse 124; Resp 20; Temp 99.7(O); Pulse Ox 93% on R/A; Weight 94.35 kg; ab2 Height 6 ft. (182.88 cm); Pain 1/10; 12:30 BP 112 / 64; Pulse 91; Resp 20; Pulse Ox 92% on R/A; ph 13:40 BP 103 / 60; Pulse 87; Resp 18; Pulse Ox 97% on R/A; ph 14:21 BP 114 / 62; Pulse 79; Resp 20; Temp 98.0; Pulse Ox 97% on R/A; ph 11:26 Body Mass Index 28.21 (94.35 kg, 182.88 cm) ab2 ED Course: 11:19 Patient arrived in ED. rg4 11:28 Triage completed. ab2 11:29 Arm band placed on left wrist. ab2 11:33 Rios Mcgregor MD is Attending Physician. nadege 12:16 XRAY Chest (1 view) In Process Unspecified. EDMS 12:18 Jewell Vines, RN is Primary Nurse. ph 12:25 Initial lab(s) drawn, by me, sent to lab. First set of blood cultures drawn Second set mh5 of blood cultures drawn by me. Inserted saline lock: 20 gauge in right forearm, using aseptic technique. Blood collected. 12:33 Basic Metabolic Panel Sent. mh5 12:33 CBC with Diff Sent. 5 12:33 LFT's Sent. 5 12:33 Magnesium Sent. 5 12:33 NT PRO-BNP Sent. 5 12:33 Troponin HS Sent. 5 12:35 Patient has correct armband on for positive identification. Bed in low position. Call [facility] light in reach. Side rails up X2. Adult w/ patient. Warm blanket given. bracelet and brooch maker on. Pulse ox on. NIBP on. 12:38 EKG done, COVID swab sent to lab. Flu and/or RSV swab sent to lab. 5 14:22 No provider procedures requiring assistance completed. IV discontinued, intact, ph bleeding controlled, No redness/swelling at site. Pressure dressing applied. Administered Medications: 12:38 Drug: Rocephin (cefTRIAXone) 1 grams Route: IV; Rate: per protocol; Site: right forearm;ph 13:15 Follow up: Response: No adverse reaction; IV Status: Completed infusion ph 12:38 Drug: Zithromax (azithromycin) 500 mg Route: PO; ph 14:23 Follow up: Response: No adverse reaction ph 12:38 Drug: SOLU-Medrol (methylPrednisoLONE) 125 mg Route: IVP; Site: right forearm; ph 14:23 Follow up: Response: No adverse reaction ph 12:38 Drug: Xopenex (levalbuterol) 1.25 mg Route: Inhalation; ph 14:23 Follow up: Response: No adverse reaction ph 12:38 Drug: AtroVENT (ipratropium) Aerosol 0.5 mg Route: Inhalation; ph 14:22 Follow up: Response: No adverse reaction ph 12:39 Drug: NS 0.9% 500 ml Route: IV; Rate: bolus; Site: right forearm; ph 13:30 Follow up: Response: No adverse reaction; IV Status: Completed infusion; IV Intake: ph 500ml 12:39 Drug: Tylenol 1000 mg Route: PO; ph 14:23 Follow up: Response: No adverse reaction; Temperature is decreased ph 14:13 Drug: predniSONE 40 mg Route: PO; 6 14:22 Follow up: Response: No adverse reaction ph Intake: 13:30 IV: 500ml; Total: 500ml. ph Outcome: 13:44 Discharge ordered by MD. light 14:22 Discharged to home ambulatory, with significant other. ph 14:22 Condition: good 14:22 Discharge instructions given to patient, significant other, Instructed on discharge instructions, follow up and referral plans. medication usage, Demonstrated understanding of instructions, follow-up care, medications, Prescriptions given X 4. 14:24 Patient left the ED. ph Signatures: Dispatcher [employer] EDMS Rios Mcgregor MD MD cha Hall, Patricia, RN RN onel Mohr, Teodora Us Alia Whitley RN RN jh6 Demar Treviño
[2021-11-09 13:59] LABS: SARS-COV-2 RT PCR NEGATIVE (NEGATIVE)
[2021-11-09] MEDS ORDERED: predniSONE 20 MG TAB ONE (14:14)
[2021-11-09 15:05] VITALS: O2SAT 97
[2021-11-09 15:07] VITALS: BP 114/62; TEMP 98
--- NOTE | 2021-11-12 12:39 | EKG ---
Test Date: 2021-11-09 Test Time: 12:43:16 Supervisor Molding: AIDA MEASUREMENT RESULTS: Intervals: Rate: 86 PA: 186 QRSD: 78 QT: 342 QTc: 409 [place]: P: 45 PA: 186 QRS: 17 T: 86 INTERPRETIVE STATEMENTS: Normal sinus rhythm Nonspecific T wave abnormality Abnormal ECG Compared to ECG 02/12/2016 22:54:35 T-wave abnormality now present Electronically Signed On 11-12-21 12:33:46 CDT by Filipe Piedra
== END 2021-11-09 14:24 | disposition home or self-care (01) ==
LOC: ER 11:15
DX: J10.1 Influenza due to other identified influenza virus with other respiratory manifestations (principal); J40 Bronchitis, not specified as acute or chronic; J44.9 Chronic obstructive pulmonary disease, unspecified; I10 Essential (primary) hypertension; Z20.822 Contact with and (suspected) exposure to COVID-19
CPT/HCPCS: 96365; 93005; 87040 ×2; 85025; 80048; 36415; 83735; 80076; 83605; 84484; 83880; 0240U; 71045; 96375; 99285; J7512; J7040; J2930

== ENCOUNTER 2025-01-04 20:21 | Emergency (ER) | payer OTHER ==
[2025-01-04 22:38] LABS: Albumin 4.1 g/dL (3.4-5.0); Albumin/Globulin Ratio 1.1 (1.1-1.8); Anion Gap 4.8 mEq/L (5.0-15.0); Bilirubin Total 0.7 mg/dL (0.2-1.0); Globulin 3.7 g/dL (2.3-3.5); Potassium 3.8 mEq/L (3.5-5.1); Protein, Total 7.8 g/dL (6.4-8.2)
[2025-01-04 22:39] LABS: Absolute Eosinophils 0.3 K/uL (0-0.5); Absolute Lymphocytes (CBC) 1.2 K/uL (0.7-4.9); Absolute Monocytes 0.4 K/uL (0.1-1.3); Absolute Neutrophil 4.9 K/uL (1.8-8.0); Basophils % 0.6 % (0-1.3); Eosinophils % 4.2 % (0-4.4); Hematocrit 47.9 % (39.6-49.0); Hemoglobin 16.3 g/dL (13.6-17.9); Lymphocytes % 17.9 % (15.3-44.8); MCH 30.9 pg (27.0-35.0); MCV 90.7 fL (80-100); MPV 10.6 fL (7.6-11.3); Monocytes % 5.7 % (3.3-12.3); Neutrophils % 71.6 % (41.7-73.7); Nucleated Red Blood Cells % 0.1 % (0-0); Platelets 216 thou/uL (152-406); RBC Red Blood Cell Count 5.28 M/uL (4.33-5.43); Red Cell Distribution Width 15.4 % (12.1-15.2)
--- NOTE | 2025-01-04 22:55 | RAD REPORT ---
EXAM: Chest Single View HISTORY: 64 years Male PAIN COMPARISON: 07/27/2024 FINDINGS: LUNGS/PLEURA: Increased linear opacities in lung bases bilaterally likely reflecting scarring or subs egmental atelectasis CARDIAC/MEDIASTINUM: Mild cardiomegaly UPPER ABDOMEN: No significant abnormality. BONES: No acute abnormality. LINES/TUBES/OTHER: N/A IMPRESSION: No definite acute process. Linear opacities in the lung bases probably atelectasis.
[2025-01-04] MEDS ORDERED: ONDANSETRON 4 MG/2 ML VIAL ONE (23:12)
[2025-01-04] MEDS ORDERED: MAGNES/ALUMIN/SIMET 30ML UCUP ONE (23:13)
[2025-01-04] MEDS ORDERED: FAMOTIDINE 20 MG/2 ML VIAL IV ONE (23:13)
[2025-01-04] MEDS ORDERED: LIDOCAINE VISCOUS 2% 10ML ORAL SOLN ONE (23:13)
--- NOTE | 2025-01-04 23:46 | ER ---
Nurse's Notes [facility] Name: Navid Parr Age: 64 yrs Sex: Male : 1960 Arrival Date: 01/04/2025 Time: 20:21 Bed 19 Private MD: Diagnosis: Foreign body in esophagus-Food bolus, resolved Presentation: 01/04 21:21 Chief complaint: Patient states: choked on a piece of meat at dinner, patient al5 experiencing n/v and indigestion after choking. not sure if the piece of meat came up, wanting to make sure it did. Coronavirus screen: At this time, the client does not indicate any symptoms associated with coronavirus-19. Ebola Screen: No symptoms or risks identified at this time. Initial Sepsis Screen: Does the patient meet any 2 criteria? No. Patient's initial sepsis screen is negative. Does the patient have a suspected source of infection? No. Patient's initial sepsis screen is negative. Risk Assessment: Do you want to hurt yourself or someone else? Patient reports no desire to harm self or others. Onset of symptoms was January 04, 2025. 21:21 Method Of Arrival: Ambulatory al5 21:21 Acuity: SAUL 3 al5 Triage Assessment: 21:24 General: Appears in no apparent distress. comfortable, Behavior is calm, cooperative. al5 Pain: Complains of pain in throat. EENT: No signs and/or symptoms were reported regarding the EENT system. Neuro: Level of Consciousness is awake, alert, obeys commands, Oriented to person, place, time, situation. Cardiovascular: Capillary refill < 3 seconds Patient's skin is warm and dry. Respiratory: Airway is patent Respiratory effort is even, unlabored, Respiratory pattern is regular, symmetrical. GI: Reports nausea, vomiting. : No signs and/or symptoms were reported regarding the genitourinary system. Derm: Skin is intact, is healthy with good turgor, Skin is pink, warm \T\ dry. normal. Musculoskeletal: No signs and/or symptoms reported regarding the musculoskeletal system. Historical: - Allergies: 21:24 No Known Allergies; al5 - Home Meds: 21:24 aspirin 81 mg oral capsule 1 cap daily [Active]; amlodipine 5 mg tab once daily al5 [Active]; atorvastatin 40 mg oral tablet [Active]; bupropion HCl 300 mg Oral Tb24 1 tab once daily [Active]; levothyroxine 112 mcg tab 1 tab once daily [Active]; montelukast 10 mg Oral tab 1 tab once daily [Active]; - PMHx: 21:24 BPH; Hypothyroidism; Hypertension; High Cholesterol; COPD; GERD; al5 - PSHx: 21:24 Tonsillectomy; Vasectomy; al5 - Immunization history:: Adult Immunizations up to date. - Infectious Disease History:: Denies. - Social history:: Smoking status: Patient denies any tobacco usage or history of. Screenin:27 [facility] ED Fall Risk Assessment (Adult) History of falling in the last 3 months, al5 including since admission No falls in past 3 months (0 pts) Confusion or Disorientation No (0 pts). [facility] ED Fall Risk Assessment (Adult) Intoxicated or Sedated No (0 pts) Impaired Gait No (0 pts) Mobility Assist Device Used No (0 pt) Altered Elimination No (0 pt) Score/Fall Risk Level 0 - 2 = Low Risk Oriented to surroundings, Maintained a safe environment, Hourly rounding (assess needs \T\ fall precautionary measures) done. Abuse screen: Denies threats or abuse. Denies injuries from another. Nutritional screening: No deficits noted. Tuberculosis screening: No symptoms or risk factors identified. Assessment: 21:27 Reassessment: see triage assessment. al5 23:00 General: Appears in no apparent distress. comfortable, Behavior is calm, cooperative, rg5 appropriate for age. 23:00 Pain: Complains of pain in abdomen Pain began 3 hours ago. Neuro: Level of rg5 Consciousness is awake, alert, obeys commands, Oriented to person, place, time, situation. Cardiovascular: Patient's skin is warm and dry. Respiratory: Airway is patent Trachea midline Respiratory effort is even, unlabored, Respiratory pattern is regular, symmetrical, Breath sounds are clear. GI: Reports lower abdominal pain, upper abdominal pain, nausea, vomiting. GI: Abdomen is round non-distended. : No signs and/or symptoms were reported regarding the genitourinary system. EENT: No signs and/or symptoms were reported regarding the EENT system. Derm: Skin is intact, Skin is dry, Skin is normal. Musculoskeletal: Circulation, motion, and sensation intact. Range of motion: intact in all extremities. 23:52 Reassessment: Patient and/or family updated on plan of care and expected duration. Pain rg5 level reassessed. Patient is alert, oriented x 3, equal unlabored respirations, skin warm/dry/pink. Patient states feeling better. Patient states symptoms have improved. Vital Signs: 21:21 BP 118 / 95; Pulse 77; Resp 15; Temp 97.8; Pulse Ox 94% on R/A; Weight 95.25 kg; Height al5 6 ft. 0 in. ; 23:00 BP 127 / 104; Pulse 70; Resp 18; Pulse Ox 96% on R/A; rg5 23:48 BP 131 / 92; Pulse 69; Resp 17; Pulse Ox 96% on R/A; rg5 21:21 Body Mass Index 28.48 (95.25 kg, 182.88 cm) al5 ED Course: 20:26 Patient arrived in ED. im 20:35 Liudmila Ovalle [facility]C [facility] kb 20:35 Baldemar Go MD is Attending Physician. kb 21:23 Triage completed. al5 21:24 Arm band placed on right wrist. Patient placed in the treatment room, in view of staff al5 members, on pulse oximetry, Patient notified of wait time. 21:27 Patient has correct armband on for positive identification. Provided Education on: plan al5 of care. 21:27 No provider procedures requiring assistance completed. al5 22:11 CBC with Diff Sent. vk 22:11 CMP Sent. vk 22:11 Lipase Sent. vk 22:11 Initial lab(s) drawn, by oh, sent to lab. Inserted saline lock: 20 gauge in left vk antecubital area, using aseptic technique. Blood collected. Flushed with 10 mL NS. 22:41 Luis Helton, RN is Primary Nurse. rg5 22:51 Chest Single View XRAY In Process Unspecified. EDMS 23:52 IV discontinued, bleeding controlled, No redness/swelling at site. Pressure dressing rg5 applied. Administered Medications: 23:00 Drug: Famotidine IVP 20 mg IVP once; dilute with 10 mL 0.9% NaCl; give over 2 minutes rg5 Route: IVP; Site: left antecubital; 23:46 Follow up: Response: No adverse reaction rg5 23:11 CANCELLED (Physician Discretion): ondansetron 4 mg IVP once; over 2 minutes kb 23:11 CANCELLED (Physician Discretion): ns 0.9% 1000 ml IV at 1 bolus Per protocol; to be kb given as a bolus over 60 minutes 23:11 CANCELLED (Physician Discretion): glucagon1 mg IVP once kb 23:21 Drug: GI Cocktail without - (Maalox PO 30 ml, Lidocaine Mucous Membrane 2 % 15 rg5 ml) PO once Route: PO; 23:46 Follow up: Response: No adverse reaction rg5 Medication: 21:27 VIS not applicable for this client. al5 Outcome: 23:46 Discharge ordered by MD. kb 23:59 Discharged to home ambulatory, rg5 23:59 Condition: stable 23:59 Discharge instructions given to patient, 23:59 Patient left the ED. rg5 Signatures: Dispatcher [employer] EDMS Liudmila Ovalle, JESSA-C PARIMUTUEL CASHIER-CkSivan Dumont Vivian vk Gallardo, Rommel RN RN rg5 Sierra Gonzales RN RN al5 Corrections: (The following items were deleted from the chart) 21:26 21:24 Home Meds: Avodart 0.5 mg Oral cap 1 cap once daily; al5 al5 21:26 21:24 Home Meds: lisinopril 40 mg Oral tab once daily; al5 al5
--- NOTE | 2025-01-04 23:47 | EDPHYS ---
Physician Documentation [facility] Name: Navid Parr Age: 64 yrs Sex: Male : 1960 Arrival Date: 01/04/2025 Time: 20:21 Bed 19 Private MD: ED Physician Baldemar Go HPI: 01/04 21:21 This 64 yrs old Male presents to ER via Unassigned with complaints of kb Nausea/Vomiting, Abdominal Pain. 23:43 Patient is a 64-year-old male who presents for vomiting and possible foreign body in kb esophagus. States he has had issues like this in the past where he is had to have his esophagus stretched. States he was eating rice and meat when he felt like something got stuck and then he started vomiting. States he has not been able to tolerate anything by mouth since 5:00 PM. Historical: - Allergies: 21:24 No Known Allergies; al5 - Home Meds: 21:24 aspirin 81 mg oral capsule 1 cap daily [Active]; amlodipine 5 mg tab once daily al5 [Active]; atorvastatin 40 mg oral tablet [Active]; bupropion HCl 300 mg Oral Tb24 1 tab once daily [Active]; levothyroxine 112 mcg tab 1 tab once daily [Active]; montelukast 10 mg Oral tab 1 tab once daily [Active]; - PMHx: 21:24 BPH; Hypothyroidism; Hypertension; High Cholesterol; COPD; GERD; al5 - PSHx: 21:24 Tonsillectomy; Vasectomy; al5 - Immunization history:: Adult Immunizations up to date. - Infectious Disease History:: Denies. - Social history:: Smoking status: Patient denies any tobacco usage or history of. ROS: 23:44 Constitutional: As per HPI kb Exam: 23:44 Constitutional: This is a well developed, well nourished patient who is awake, alert, kb and in no acute distress. Head/Face: Normocephalic, atraumatic. ENT: Moist Mucous membranes Cardiovascular: Regular rate Respiratory: Respirations even and unlabored. No increased work of breathing. Talking in full sentences Abdomen/GI: Soft, non-tender. No distention Skin: Warm, dry with normal turgor. Normal color. MS/ Extremity: Pulses equal, no cyanosis. Neurovascular intact. Full, normal range of motion. Neuro: Awake and alert, GCS 15, oriented to person, place, time, and situation. Vital Signs: 21:21 BP 118 / 95; Pulse 77; Resp 15; Temp 97.8; Pulse Ox 94% on R/A; Weight 95.25 kg; Height al5 6 ft. 0 in. ; 23:00 BP 127 / 104; Pulse 70; Resp 18; Pulse Ox 96% on R/A; rg5 23:48 BP 131 / 92; Pulse 69; Resp 17; Pulse Ox 96% on R/A; rg5 21:21 Body Mass Index 28.48 (95.25 kg, 182.88 cm) al5 MDM: 20:35 Medical Screening Exam initiated kb 23:45 Differential diagnosis: Food bolus, GERD, dehydration, abnormal electrolytes. Data kb reviewed: vital signs, nurses notes. Historians other than the Patient: Spouse/Significant Other: . Counseling: I had a detailed discussion with the patient and/or guardian regarding the historical points, exam findings, and any diagnostic results supporting the discharge/admit diagnosis, lab results, radiology results, the need for outpatient follow up, a dinkey skinner, to return to the emergency department if symptoms worsen or persist or if there are any questions or concerns that arise at home. ED course: When patient was brought back to exam room he stated he is vomiting has resolved and he believes that his food bolus has passed. Patient given GI cocktail and p.o. challenge. Was able to tolerate. States he is ready to go home.. 01/04 21:21 Order name: CBC with Diff; Complete Time: 22:42 kb 01/04 21:21 Order name: CMP; Complete Time: 22:41 kb 01/04 21:21 Order name: Lipase; Complete Time: 22:41 kb 01/04 21:21 Order name: Chest Single View XRAY; Complete Time: 22:57 kb 01/04 21:21 Order name: IV Saline Lock; Complete Time: 22:11 kb 01/04 21:21 Order name: Labs collected and sent; Complete Time: 22:11 kb 01/04 23:12 Order name: PO challenge; Complete Time: 23:46 kb Administered Medications: 23:00 Drug: Famotidine IVP 20 mg IVP once; dilute with 10 mL 0.9% NaCl; give over 2 minutes rg5 Route: IVP; Site: left antecubital; 23:46 Follow up: Response: No adverse reaction rg5 23:11 CANCELLED (Physician Discretion): ondansetron 4 mg IVP once; over 2 minutes kb 23:11 CANCELLED (Physician Discretion): ns 0.9% 1000 ml IV at 1 bolus Per protocol; to be kb given as a bolus over 60 minutes 23:11 CANCELLED (Physician Discretion): glucagon1 mg IVP once kb 23:21 Drug: GI Cocktail without - (Maalox PO 30 ml, Lidocaine Mucous Membrane 2 % 15 rg5 ml) PO once Route: PO; 23:46 Follow up: Response: No adverse reaction rg5 Disposition: 01/05 01:14 Co-signature as Attending Physician, Baldemar Go MD I reviewed the patient's care rn provided by the Advanced Practice Provider and agree with the diagnosis and treatment plan. Disposition Summary: 01/04/25 23:46 Discharge Ordered Notes: Location: Home kb Condition: Stable kb Diagnosis - Foreign body in esophagus - Food bolus, resolved kb Followup: kb - With: Emergency Department - When: As needed - Reason: Worsening of condition Followup: kb - With: Private Physician - When: 2 - 3 days - Reason: Recheck today's complaints, Continuance of care, Re-evaluation by your physician Discharge Instructions: - Discharge Summary Sheet kb - Esophageal Stricture kb Forms: - Medication Reconciliation Form kb - Antibiotic Education kb - Prescription Opioid Use kb - Patient Portal Instructions kb - Leadership Thank You Letter kb Signatures: Dispatcher [employer] [facility] Liudmila Ovalle, [employer] ASSOCIATE-C [employer] SAL[employer]OCIATE-Ckb Baldemar Go MD MD rn Gallardo, Rommel, RN RN rg5 Sierra Gonzales RN RN al5 Corrections: (The following items were deleted from the chart) 01/04 21:22 21:22 Chest Single View+[email or web address] ordered. EDGA EDMS 21: 21:24 Home Meds: Avodart 0.5 mg Oral cap 1 cap once daily; al5 al5 :26 21:24 Home Meds: lisinopril 40 mg Oral tab once daily; al5 al5 23:11 21:21 Ondansetron IVP 4 mg IVP once; over 2 minutes ordered. kb kb 23:11 21:21 NS 0.9% IV 1000 ml IV at 1 bolus Per protocol; to be given as a bolus over 60 kb minutes ordered. kb 23:11 21:21 Glucagon IVP 1 mg IVP once ordered. kb kb
[2025-01-05 00:32] VITALS: TEMP 97.8
[2025-01-05 00:33] VITALS: O2SAT 96
[2025-01-05 00:34] VITALS: BP 131/92
== END 2025-01-04 23:59 | disposition home or self-care (01) ==
LOC: ER 20:21
DX: T18.128A Food in esophagus causing other injury, initial encounter (principal); Z79.82 Long term (current) use of aspirin
CPT/HCPCS: 85025; 36415; 83690; 80053; 71045; J2405